=== PATIENT | male | born 1960 | race Caucasian/White ===

== ENCOUNTER 2017-07-12 07:23 | Inpatient (IN) | payer OTHER ==
[~2017-07-12] VITALS: Ht 172.7 cm; Wt 81.6 kg
[2017-07-12 19:00] LABS: *AMPHETAMINE, URINE NEGATIVE (NEGATIVE); *BARBITURATE, URINE NEGATIVE (NEGATIVE); *CANNABINOID, URINE NEGATIVE (NEGATIVE); *COCCAINE, URINE NEGATIVE (NEGATIVE); *OPIATE, URINE NEGATIVE (NEGATIVE); *PHENCYCLIDINE SCREEN,URINE NEGATIVE (NEGATIVE)
[2017-07-12] MEDS ORDERED: LOPERAMIDE HCL 2 MG CAPSULE PO PRN ×2 (19:00)
[2017-07-12] MEDS ORDERED: LORAZEPAM 2 MG/1 ML VIAL IM PRN (19:00)
[2017-07-12] MEDS ORDERED: IBUPROFEN 400 MG TABLET PO PRN (19:00)
[2017-07-12] MEDS ORDERED: ONDANSETRON 4 MG/2 ML VIAL IM PRN (19:00)
[2017-07-12] MEDS ORDERED: LORAZEPAM 1 MG TABLET PO PRN (19:00)
[2017-07-12] MEDS ORDERED: MIRALAX 17 GM POWD.PACK PO PRN (19:00)
[2017-07-12] MEDS ORDERED: ONDANSETRON ODT 4 MG TAB.RAPDIS SL PRN (19:00)
[2017-07-12] MEDS ORDERED: CLONIDINE HCL 0.1 MG TABLET PO PRN (19:00)
[2017-07-12] MEDS ORDERED: diphenhydrAMINE 50 MG CAPSULE PO PRN (19:00)
[2017-07-12] MEDS ORDERED: THIAMINE HCL 200 MG/2 ML VIAL IM ONE (19:00)
[2017-07-12] MEDS ORDERED: MAG HYDROX/AL HYDROX/SIMETH 30 ML LIQUID UDC PO PRN (19:00)
[2017-07-12] MEDS ORDERED: DICYCLOMINE HCL 20 MG TABLET PO PRN (19:00)
--- NOTE | 2017-07-12 19:15 | NUR ---
INTAKE ASSESSMENT Patient is 57yo male patient presented for admission for supervised withdrawal from alcohol (last use of substance today and drank 2 oz of whiskey at 2pm). Patient states he was drinking 2 cans of beer (21oz) 3-5 days a week for 6 months. Vital signs: 140/96, HR 93, RR 19, 02 sat 95% R/A, 0/pain. Patient is alert and oriented X4 with NKA. Patient noted to have tremors and anxiety. Patient currently denies nausea, vomiting, diarrhea, headache, tactile disturbances, auditory or visual hallucinations. Patient denies having any medical history at this time. Patient denies any history of seizure or fall. Prince routines explained to patient (i.e q4h vital, medication handling including narcotics , disposal of any contraband. Patient appears to be stable to proceed with her admission to [facility] for further care. Patient reports he takes aspirin 81mg at home.
--- NOTE | 2017-07-12 19:30 | NUR ---
ADMISSION NOTE: Patient is a 57 y.o male admitted at [facility] at approximately 1903 pm of 07/12/17 for medically supervised withdrawal from ETOH. Body search done and skin check performed, no contraband found. Skin noted to be intact. Pt is 6'2" tall and weighs 180 lbs in a standing scale. Patient is oriented to floor unit and room. Patient follows a Vegetarian diet at home with no known food and drug allergies. Pt wishes to be full Code. Patient is alert & oriented x4, ambulatory with a steady gait. Speech is clear and audible. During interview, patient answers questions with some sarcasm. Patient does not look intoxicated. Patient not in any distress. No shortness of breath noted. Respiration even & unlabored. Abdomen soft & non-distended. Bowel sounds active in all four quadrants. No nausea/vomiting noted. Patient presented with anxiety & agitation. Denies any pain/discomfort at this time. No hand tremors noted. Pt denies any hallucinations. CIWA 2 noted. Vitals noted WNL. Patient noted with past medical history of Atrial Septal Defect, CVA(2017), HTN, Antiphospholipid Syndrome, & Dyslipidemia. Pt currently denies SI/HI. Pt was able to provide urine sample for drug screen upon admission and is voiding clear yellow urine with no problems. Substance use: 1. ETOH- Pt started drinking when he was 17 years old. Pt drinks 2-3 cans of beer 3x-5x a week. Last drink was a shot of whiskey on the day of admission. Patient denies any treatment history in the past. Patient denies being hospitalized in the last 30 days. Patient reports his longest period of sobriety was for 5 days 8 months ago. Patient smokes occasionally. Patient refused flu & pneumonia vaccines, educated patient risk & benefits but still refused. Patient's PCP is Dr. Nadeen Mclaughlin. Urine drug screen came back negative. Alcohol level is 0.06. Fall & Seizure precautions are in place. All needs attended & met. Safety precautions are in place. Bed locked in lowest position. Both side rails padded & up. Call light within pt's reach. Will continue to monitor patient.
[2017-07-12 19:59] LABS: BASOPHILS # (AUTO) 0.1 K/uL (0.0-8.0); BASOPHILS % (AUTO) 0.9 % (0.0-2.0); EOSINOPHILS # (AUTO) 0.1 K/uL (0.0-0.7); EOSINOPHILS % (AUTO) 0.9 % (0.0-7.0); HEMATOCRIT 46.8 % (36.7-47.1); HEMOGLOBIN 15.9 g/dL (12.5-16.3); LYMPHOCYTES # (AUTO) 2.1 K/uL (20.0-40.0); MEAN CORPUSCULAR HEMOGLOBIN 32.9 uug (23.8-33.4); MEAN CORPUSCULAR HGB CONC 34 g/dL (32.5-36.3); MEAN CORPUSCULAR VOLUME 96.5 fL (73.0-96.2); MONOCYTES # (AUTO) 0.4 K/uL (2.0-10.0); MONOCYTES % (AUTO) 7.2 % (0.0-11.0); NEUTROPHILS # (AUTO) 3.3 K/uL (1.8-8.9); PLATELET COUNT (AUTO) 216 K/uL (152-348); RED BLOOD CELL COUNT(AUTO) 4.85 MIL/uL (4.06-5.63); WHITE BLOOD COUNT (AUTO) 5.9 K/uL (3.6-10.2)
[2017-07-12 20:10] LABS: BILIRUBIN,TOTAL 0.4 mg/dL (0.2-1.0); POTASSIUM 3.7 mmol/L (3.5-5.1); TOTAL PROTEIN, SERUM 7.9 g/dL (6.4-8.2)
[2017-07-12] MEDS: ATORVASTATIN 10 MG TABLET PO SCH (21:22)
[2017-07-13] VITALS: BP 128/54
[2017-07-13] MEDS: LORAZEPAM 1 MG TABLET PO PRN ×3 (00:01→15:01)
--- NOTE | 2017-07-13 00:01 | NUR ---
PRN Ativan and Maalox Patient presented with clammy skin, anxiety, & agitation. Pt also complaining of heartburn. CIWA 6 noted. PRN Ativan & Maalox administered as ordered. Will monitor for effectiveness of medication.
--- NOTE | 2017-07-13 01:01 | NUR ---
PRN Reassessment Pt observed in bed with eyes close. Pt observed calm and comfortable. Safety measures in place. Will continue to monitor patient.
[2017-07-13] MEDS ORDERED: OXYM15MI4 NS (02:53)
[2017-07-13] MEDS ORDERED: ASPI81TA31 PO (02:53)
[2017-07-13 04:00] VITALS: BP 116/86
--- NOTE | 2017-07-13 07:17 | NUR ---
End of Shift Note: Pt was admitted last night for ETOH withdrawal. Pt has no taper yet. Pt observed with anxiety and agitation and received PRN Ativan for anxiety & Maalox for heartburn and was effective. Last CIWA is 6. Pt still asleep at this time with no s/s of distress noted. Pt slept for a total of 7 hours. Fluid intake: 1000ml. [id number] with no bowel movement. All needs attended. Safety measures in place. Will endorse to day shift nurse.
--- NOTE | 2017-07-13 07:35 | NUR ---
START OF SHIFT Pt is a 57 yr old male, AA&Ox4. Pt was admitted on 07/12/16 for ETOH Dependence and is on PRN Ativan for s/s of w/d. Received report from overnight stocker nurse. Pt received Ativan PRN during the night for w/d. Medication was effective. Pt slept for 7 hrs. Last CIWA score was 6. Pt is currently in bed resting with respirations even and unlabored. No acute distress noted. Skin is intact, warm and dry to touch. Safety precautions observed. Call light is within reach. Will continue to monitor. Addendum: 07/13/17 at 1032 by GRAZYNA BAEZA LVN Documentation correction, Pt was admitted for medically supervised withdrawal from ETOH
[2017-07-13 08:00] VITALS: BP 139/96
[2017-07-13] MEDS: ASPIRIN 81 MG TAB.CHEW PO SCH (08:48)
[2017-07-13] MEDS: THIAMINE HCL 100 MG TABLET PO SCH (08:48)
[2017-07-13] MEDS: MULTIVITAMINS,THERAPEUTIC TABLET PO SCH (08:49)
[2017-07-13] MEDS: FOLIC ACID 1 MG TABLET PO SCH (08:49)
--- NOTE | 2017-07-13 08:57 | NUR ---
ATIVAN PRN GIVEN Pt was c/o increase anxiety and mild headache. Fine tremors were seen. CIWA score was 11 at 0800. Ativan 1mg PO PRN was given as ordered. Medication dotty well. Encouraged increase fluid intake. Will continue to monitor.
[2017-07-13] MEDS ORDERED: TUBERCULIN,PURIF.PROT.DERIV. 5 TU/0.1 ML TEST ID ONE (09:00)
--- NOTE | 2017-07-13 10:00 | NUR ---
PRN REASSESSMENT Ativan 1mg PO PRN was effective. CIWA score went from 11 to a score of 3. Pt c/o mild anxiety but is able to cope with anxiety level. Will continue to monitor.
[2017-07-13 12:00] VITALS: BP 122/89
[2017-07-13] MEDS ORDERED: NICOTINE 14 MG/24HR PATCH TD PRN (13:00)
[2017-07-13] MEDS: ACETAMINOPHEN 325 MG TABLET PO PRN (13:14)
--- NOTE | 2017-07-13 13:14 | NUR ---
TYLENOL PRN GIVEN Pt c/o headache 11/11. Pt requested for Tylenol. Tylenol 650mg PO PRN was given as ordered. Encouraged increase fluid intake for hydration. Will continue to monitor.
[2017-07-13] MEDS: GABAPENTIN 300 MG CAPSULE PO SCH ×2 (14:58→21:35)
[2017-07-13] MEDS: NICOTINE POLACRILEX 4 MG GUM-PK OF TEN BC PRN ×2 (14:58→18:30)
--- NOTE | 2017-07-13 15:01 | NUR ---
ATIVAN PRN GIVEN/PRN RE-ASSESSMENT Tylenol 650MG PO PRN was mildly effective. Pt c/o headache and anxiety level of 7/10. Pt is noted with bilateral hand tremors. CIWA score was 11 at 1500. Ativan 1mg PO PRN was given as ordered. Encouraged increase fluid intake. Pt was also given Nicotine Gum PRN for smoking cessation. Safety precautions are observed. Call light is within reach. Will continue to monitor.
[2017-07-13 16:00] VITALS: BP 136/92
--- NOTE | 2017-07-13 16:01 | NUR ---
ATIVAN RE-ASSESSMENT Ativan 1mg PRN was effective. Pt continues to be observed with anxiety and fine tremors. Pt's is observed with fidgety hands. Pt states his headache was relived with the Ativan. CIWA score went from 11 to 8 upon reassessment. Encouraged pt increase fluid intake. Will continue to monitor.
[2017-07-13] MEDS: NORMAL SALINE NASAL 45 ML BOTTLE NS PRN (16:22)
--- NOTE | 2017-07-13 16:22 | NUR ---
PRN GIVEN Pt requested for NS nasal spray for nasal congestion. NS nasal spray PRN was given as ordered. Medication dotty well.
--- NOTE | 2017-07-13 16:30 | NUR ---
BEHAVIORAL NOTE Pt report to program writer in regards to speaking with a casework supervisor in regards to discharge location. Pt stated, "I have not spoken to anyone in regards to my location". Pt was observed irritable. Spoke with Raul Walker in regards to the pt's concern. Per Aaron, pt was spoken to by several staff members including himself in regards to discharge location. Pt was spoken again by Raul Walker, in regards to discharge location. Pt was able to verbalize understanding. Will continue to monitor.
--- NOTE | 2017-07-13 19:15 | NUR ---
END OF SHIFT Pt is a 57 yr old male, AA&Ox4 with periods of forgetfulness. Pt has been c/o increase anxiety. Fine tremors are observed on bilateral hands. Pt has also been c/o headache. Pt received Ativan 1mg PO PRN x2 at 0857 and 1501 for s/s of w/d. medication was effective. Pt also received Tylenol PRN at 1314 as requested for headache. Medication was mildly effective. Pt was place on 1:1 for behavioral monitoring at [address] Partida. No SI/HI was noted. Pt was cooperative with medication regimen. Pt refused to attend group therapy or activities. Pt did consume 100% of all meals. Last CIWA score was 8 at 1600. Pt was encouraged increase fluid intake. Safety precautions observed. Call light is within reach.
[2017-07-13 20:00] VITALS: BP 141/98
--- NOTE | 2017-07-13 20:00 | NUR ---
Start of Shift Patient is admitted for Alcohol Withdrawal. Patient is AAOx4 but noted to be forgetful, gets easily irritated and with intermittent delusions of grandeur. Pts room observed to be unkempt, with clother and candy wrappers scattered on the floor. Pt also noted to be anxious, suspicious and is guarded. Provided education and teachings regarding plan of care and treatment. Pt is ambulatory with steady gait and with no SOB noted. Latest CIWA=10. Will continue to monitor.
[2017-07-13] MEDS ORDERED: LORAZEPAM 1 MG TABLET PO SCH (21:00)
[2017-07-13] MEDS: ATORVASTATIN 10 MG TABLET PO SCH (21:35)
[2017-07-14] VITALS: BP 137/92
[2017-07-14 04:00] VITALS: BP 140/87
--- NOTE | 2017-07-14 07:25 | NUR ---
End of Shift Patient is admitted for Alcohol Withdrawal. Patient continues to be on 1:1 due to safety. Pt continues to be forgetful, gets easily irritated and with intermittent delusions of grandeur. Pt also continues to be anxious, suspicious and is guarded. Pt c/o anxiety and would only wait for the Ativan medication scheduled this morning. Pt is ambulatory with steady gait and with no SOB noted. Fall, universal, seizure and safety prec in place. Latest CIWA=7, slept for 9 hours. Endorsed to AM shift nurse for continuity of care.
--- NOTE | 2017-07-14 07:40 | NUR ---
START OF SHIFT Pt is a 57 yr old male, AA&Ox3. Pt was admitted on 07/12/17 for ETOH withdrawal and is on a modified 2 day Ativan taper as ordered. Received report from fast food shift lead nurse. Pt was cooperative with medication regimen. No PRN's were given during the night. Pt slept for 9 hrs. Last CIWA score was 7 at 0400. Pt remains on 1:1 for behavioral monitoring. Pt states he was able to sleep well throughout the night. Pt is c/o feeling anxious this morning. Fine tremors are seen on bilateral hands. Pt was encouraged to drink plenty of fluids. Pt was able to verbalize understanding. safety precautions observed. Will continue to monitor.
[2017-07-14 08:00] VITALS: BP 143/94
[2017-07-14] MEDS: MULTIVITAMINS,THERAPEUTIC TABLET PO SCH (08:49)
[2017-07-14] MEDS: GABAPENTIN 300 MG CAPSULE PO SCH ×3 (08:49→20:53)
[2017-07-14] MEDS: THIAMINE HCL 100 MG TABLET PO SCH (08:49)
[2017-07-14] MEDS: ASPIRIN 81 MG TAB.CHEW PO SCH (08:49)
[2017-07-14] MEDS: FLUTICASONE PROP NASAL SPRAY 16 GM BOTTLE NS SCH (08:50)
[2017-07-14] MEDS: FOLIC ACID 1 MG TABLET PO SCH (08:50)
[2017-07-14] MEDS: LORAZEPAM 1 MG TABLET PO SCH ×2 (08:50→20:53)
[2017-07-14] MEDS: ACETAMINOPHEN 325 MG TABLET PO PRN (12:04)
[2017-07-14] MEDS: NICOTINE POLACRILEX 4 MG GUM-PK OF TEN BC PRN ×2 (12:06→22:31)
[2017-07-14 12:11] VITALS: BP 125/90
--- NOTE | 2017-07-14 12:38 | NUR ---
PRN GIVEN Pt c/o headache 10/11 and requested for Tylenol and Nicotine gum for smoking cessation. Tylenol 650mg PO PRN and Nicotine Gum 4mg was given as ordered. Encouraged increase fluid intake. Will continue to monitor.
[2017-07-14 13:17] LABS: HEPATITIS B SURFACE AG Negative (Negative)
[2017-07-14 16:00] VITALS: BP 132/89
--- NOTE | 2017-07-14 19:10 | NUR ---
END OF SHIFT NOTE Pt is a 57 yr old male, AA&Ox4. Pt has been cooperative with medication regimen and plan of care. Pt was encouraged multiply times to attend group but pt refused to attend stating meetings make me feel uncomfortable. Pt remains on 1:1 for behavioral monitoring. Pt states of feeling anxious and c/o headaches. Pt received Tylenol 650mg PO PRN at 1204 for headache. Medication was effective. Pt also received Nicotine Gum PRN x1 for smoking cessation. Pt continues to be observed with fine tremors with arm extended. Last CIWA score was 9 at 1600. Pt was able to consume 100% of meal intake. Pt was encouraged increase fluid intake for hydration. Endorsed to fast food shift lead nurse to continue with care.
[2017-07-14 20:00] VITALS: BP 141/97
--- NOTE | 2017-07-14 20:00 | NUR ---
START OF SHIFT NOTE PATIENT IS HERE FOR ETOH DEPENDENCE. PATIENT IS ON ATIVAN TAPER, TOLERATED WELL AND NO ADVERSE REACTION. PATIENT IS ON 1:1 FOR BEHAVIORAL MONITORING. PATIENT WAS GIVEN PRN TYLENOL AND NICOTINE GUM. RECEIVED PATIENT IN THE ROOM WITH PAPERBOARD BOXES ESTIMATOR. PATIENT REPORTS ANXIETY AND NOTED WITH FINE TREMORS, HE STATES THAT HE WILL BE NEEDING SLEEP MEDICATION . PATIENT SAFETY MEASURES IN PLACE. CALL LIGHT IN REACH. WILL CONTINUE TO MONITOR.
[2017-07-14] MEDS: ATORVASTATIN 10 MG TABLET PO SCH (20:53)
[2017-07-14] MEDS: QUETIAPINE FUMARATE 25 MG TABLET PO PRN (20:53)
--- NOTE | 2017-07-14 20:53 | NUR ---
PRN SEROQUEL ADMINISTRATION PATIENT REQUEST FOR SLEEP AID. WILL MONITOR FOR EFFECTIVENESS
[2017-07-14] MEDS: NORMAL SALINE NASAL 45 ML BOTTLE NS PRN (21:21)
--- NOTE | 2017-07-14 21:21 | NUR ---
PRN NORMAL SALINE NASAL SPRAY PATIENT REQUESTS FOR NASAL SPRAY FOR CONGESTION. WILL MONITOR FOR EFFECTIVENESS
--- NOTE | 2017-07-14 22:31 | NUR ---
PRN NICOTINE GUM PATIENT REQUESTS FOR NICOTINE GUM
--- NOTE | 2017-07-14 22:44 | NUR ---
PRN CATAPRES PATIENT REPORTS ANXIETY 5/10, RESTLESS , IRRITABLE AND UNABLE TO SLEEP. WILL MONITOR FOR EFFECTIVENESS
--- NOTE | 2017-07-14 23:44 | NUR ---
PRN SEROQUEL AND CATAPRES RE-ASSESSMENT PATIENT IN BED WITH EYES CLOSED. RESPIRATION EVEN AND UNLABORED. CONTINUE ON 1:1 . WILL CONTINUE TO MONITOR.
[2017-07-15] VITALS: BP_SYST 112; BP_SYST 125; BP_DIAS 64
--- NOTE | 2017-07-15 07:30 | NUR ---
START OF SHIFT Pt is a 57 yr old male, AA&Ox3. Pt was admitted on 07/12/17 for ETOH withdrawal and is on a modified 2 day Ativan taper as ordered. Received report from shift stacker nurse. Pt was cooperative with medication regimen. Pt received Seroquel PRN for sleep and Clonidine PRN during the shift stacker. Pt slept for 7 hrs. Last CIWA score was 6 at 1999. Pt remains on 1:1 for behavioral monitoring. Pt states he was able to sleep well throughout the night. Pt states of feeling "better" this morning. Fine tremors are still seen on bilateral hands. Pt is observed wearing the same clothes for 3 days. Pt was offered clean scrubs but refused. Safety precautions observed. Will continue to monitor.
--- NOTE | 2017-07-15 07:43 | NUR ---
END OF SHIFT NOTE PATIENT CONTINUE ON ATIVAN TAPER, TOLERATED WELL AND NO ADVERSE REACTION. PATIENT IS CONTINUE ON 1:1 FOR BEHAVIORAL MONITORING.PATIENT COMPLIANT WITH MEDICATION AND TREATMENT PLAN. PATIENT WAS GIVEN PRN SEROQUEL FOR SLEEP, NASAL SPRAY, CATAPRES AND NICOTINE GUM. LAST CIWA 6. SAFETY MEASURES IN PLACE. CALL LIGHT IN REACH. WILL CONTINUE TO MONITOR.
[2017-07-15 08:00] VITALS: BP 137/91
[2017-07-15] MEDS ORDERED: LORAZEPAM 1 MG TABLET PO SCH (09:00)
[2017-07-15] MEDS: GABAPENTIN 300 MG CAPSULE PO SCH ×2 (09:25→14:55)
[2017-07-15] MEDS: THIAMINE HCL 100 MG TABLET PO SCH (09:25)
[2017-07-15] MEDS: ASPIRIN 81 MG TAB.CHEW PO SCH (09:25)
[2017-07-15] MEDS: MULTIVITAMINS,THERAPEUTIC TABLET PO SCH (09:25)
[2017-07-15] MEDS: FOLIC ACID 1 MG TABLET PO SCH (09:25)
[2017-07-15] MEDS: FLUTICASONE PROP NASAL SPRAY 16 GM BOTTLE NS SCH (09:27)
[2017-07-15 12:00] VITALS: BP 124/87
[2017-07-15] MEDS ORDERED: HYDROXYZINE PAMOATE 25 MG CAPSULE PO PRN (12:00)
[2017-07-15] MEDS: ACETAMINOPHEN 325 MG TABLET PO PRN (14:54)
--- NOTE | 2017-07-15 14:54 | NUR ---
PRN GIVEN Pt c/o lower back pain 11/11. Tylenol 650mg PO PRN was given as ordered. Encouraged increase fluid intake. Will continue to monitor.
[2017-07-15 16:00] VITALS: BP 116/81
--- NOTE | 2017-07-15 16:00 | NUR ---
PRN RE-ASSESSMENT Tylenol PRN was effective. Pt denies any pain or discomfort. Will continue to monitor.
--- NOTE | 2017-07-15 19:00 | NUR ---
END OF SHIFT NOTE Pt is a 57 yr old male, AA&Ox4. Pt has been cooperative with medication regimen and plan of care. Pt was encouraged multiply times to attend group but pt refused to attend stating meetings make me feel uncomfortable. Pt remains on 1:1 for behavioral monitoring. Pt c/o back pain and received Tylenol 650mg PO PRN at 1454. Medication was effective. Pt si to be discharged tomorrow. Last CIWA score was 3 at 1600. Pt was able to consume 100% of meal intake. Pt was encouraged increase fluid intake for hydration. Endorsed to retail shift supervisor nurse to continue with care.
[2017-07-15 20:00] VITALS: BP 120/80
--- NOTE | 2017-07-15 20:00 | NUR ---
START OF SHIFT NOTE RECEIVED REPORT FROM DAY SHIFT NURSE. PATIENT ADMITTED FOR ETOH WITHDRAWAL. PATIENT IS MEDICALLY CLEARED TO BE DISCHARGE TOMORROW. PATIENT COMPLETED ATIVAN TAPER, TOLERATED WELL AND NO ADVERSE REACTION . PATIENT WAS GIVEN PRN TYLENOL FOR BACK PAIN. LAST CIWA 3. PATIENT UNSHAVEN AND APATHETIC. HE STATES HE'LL BE NEEDING SLEEP MEDICATION. SAFETY MEASURES IN PLACE. CALL LIGHT IN REACH. WILL CONTINUE TO MONITOR
[2017-07-15] MEDS ORDERED: CLON0.1T14 PO (20:33)
[2017-07-15] MEDS ORDERED: FLUT16SP NS (20:33)
[2017-07-15] MEDS ORDERED: GABA-534 PO ×2 (20:33)
[2017-07-15] MEDS ORDERED: NICO4GUM38 BC (20:33)
[2017-07-15] MEDS ORDERED: ASPI81TA31 PO (20:33)
[2017-07-15] MEDS ORDERED: IBUP-1953 PO (20:33)
[2017-07-15] MEDS ORDERED: ATOR10TA PO (20:33)
[2017-07-15] MEDS ORDERED: HYDR-3895 PO (20:33)
--- NOTE | 2017-07-15 20:51 | NUR ---
PRN SEROQUEL ADMINISTRATION PATIENT REQUESTS FRO SLEEP AID. WILL MONITOR FOR EFFECTIVENESS
[2017-07-15] MEDS ORDERED: GABAPENTIN 300 MG CAPSULE PO SCH (21:00)
[2017-07-15] MEDS: ATORVASTATIN 10 MG TABLET PO SCH (21:12)
[2017-07-15] MEDS: QUETIAPINE FUMARATE 25 MG TABLET PO PRN (21:12)
[2017-07-15] MEDS: NICOTINE POLACRILEX 4 MG GUM-PK OF TEN BC PRN (21:23)
--- NOTE | 2017-07-15 21:52 | NUR ---
PRN NICOTINE GRN
--- NOTE | 2017-07-15 22:30 | NUR ---
PRN SEROQUEL RE-ASSESSMENT PATIENT IN BED WITH EYES CLOSED. RESPIRATION EVEN AND UNLABORED. CONTINUE ON 1:1 WITH HRBP.
--- NOTE | 2017-07-16 | NUR ---
CIWA DEFERRED PATIENT SLEEPING . CIWA DEFERRED. VS REFUSED . RESPIRATION EVEN AND UNLABORED. SAFETY MEASURES IN PLACE. CALL LIGHT IN REACH. WILL CONTINUE TO MONITOR
--- NOTE | 2017-07-16 04:00 | NUR ---
CIWA DEFERRED PATIENT SLEEPING . CIWA DEFERRED. VS REFUSED . RESPIRATION EVEN AND UNLABORED. SAFETY MEASURES IN PLACE. CALL LIGHT IN REACH. WILL CONTINUE TO MONITOR
--- NOTE | 2017-07-16 07:30 | NUR ---
END OF SHIFT NOTE PATIENT SLEPT 8 HOURS. FLUID INTAKE 1,000 ML. VOIDED X 2. NO BM. MONITORED PATIENT THROUGHOUT THE NIGHT. PATIENT WAS IN THE ROOM MOST OF THE SHIFT. PATIENT WAS GIVEN PRN SEROQUEL FOR SLEEP AND PRN NICOTINE GUM. PATIENT COMPLIANT WITH MEDICATION. PATIENT IS DISCHARGING TODAY. SAFETY MEASURES IN PLACE. CALL LIGHT IN REACH. WILL CONTINUE TO MONITOR
--- NOTE | 2017-07-16 07:30 | NUR ---
Start of shift note; Received report from night nurse. Patient is a 57 year old male admitted on 07/22/17 for ETOH withdrawals. Patient is AOX4, currently laying in bed. He is complaining of anxiety, flushed face noted with poor eye contact. Patient encouraged to verbalize feelings. Patient stated "I am nervous for my discharge but i think I am ready for my next step". Educated patient regarding the importance of continuation of treatment, patient verbalized understanding. All safety measures secured. Will continue to monitor patient.
[2017-07-16] MEDS: THIAMINE HCL 100 MG TABLET PO SCH (08:14)
[2017-07-16] MEDS: GABAPENTIN 300 MG CAPSULE PO SCH (08:14)
[2017-07-16] MEDS: FOLIC ACID 1 MG TABLET PO SCH (08:14)
[2017-07-16] MEDS: MULTIVITAMINS,THERAPEUTIC TABLET PO SCH (08:14)
[2017-07-16] MEDS: FLUTICASONE PROP NASAL SPRAY 16 GM BOTTLE NS SCH (08:15)
[2017-07-16] MEDS: ASPIRIN 81 MG TAB.CHEW PO SCH (08:21)
[2017-07-16] MEDS: NICOTINE POLACRILEX 4 MG GUM-PK OF TEN BC PRN (08:21)
--- NOTE | 2017-07-16 09:28 | NUR ---
Discharge note; Patient is AOX4. Patient is medically cleared for discharge per MD. Patient to be transferred to [facility] to continue sobriety. All valuables, belongings, medications, prescriptions given to patient. Patient completed treatment. Patient discharged on 07/16/17 at 0928, patient left in a stable condition. Met all needs.
== END 2017-07-16 09:28 | disposition other institution (70) | DRG 895 ==
LOC: SRC 17:40
PROVIDERS: ADMIT Internal Medicine; ATTEND Internal Medicine
PROC: HZ2ZZZZ Detoxification Services for Substance Abuse Treatment (ICD-10-PCS; principal; 2017-07-12)
PROC: HZ31ZZZ Individual Counseling for Substance Abuse Treatment, Behavioral (ICD-10-PCS; 2017-07-13)
DX: F10.230 Alcohol dependence with withdrawal, uncomplicated (principal); D68.61 Antiphospholipid syndrome; Q21.1 Atrial septal defect; I69.314 Frontal lobe and executive function deficit following cerebral infarction; Y90.9 Presence of alcohol in blood, level not specified; F41.9 Anxiety disorder, unspecified; Z83.3 Family history of diabetes mellitus; Z82.49 Family history of ischemic heart disease and other diseases of the circulatory system; F17.211 Nicotine dependence, cigarettes, in remission; E78.5 Hyperlipidemia, unspecified; I10 Essential (primary) hypertension; Z79.899 Other long term (current) drug therapy; F32.9 Major depressive disorder, single episode, unspecified
CPT/HCPCS: 36415; 80307; 83735; 85025; 86580; 86592; 86705; 86803; 87340; 87806; A4663; G0480; J3535